=== PATIENT | female | born 1975 | race Caucasian/White ===

== ENCOUNTER 2018-02-14 15:32 | Emergency (ER) | payer MEDICARE, MEDICAID ==
[2018-02-14] MEDS ORDERED: Phenazopyridine TAB* 100 MG PO ONE (16:06)
[2018-02-14 16:21] LABS: Urine Appearance Turbid; Urine Blood 3+ (Negative); Urine Color Yellow; Urine Ketones Trace (Negative); Urine Protein 2+(100 mg/dL) (Negative); Urine Specific Gravity 1.026 (1.010-1.030); Urine Urobilinogen Negative (Negative)
[2018-02-14 20:24] VITALS: BP 108/64
--- NOTE | 2018-02-16 09:12 | ED ---
Progress - Progress Note Progress Note: Patient's preliminary urine culture reveals greater than 100,000 Escherichia coli. She was discharged on ciprofloxacin. Pending final results. No change at this time. Discharge - Sign-Out/Discharge Documenting (check all that apply): Post-Discharge Follow Up - Discharge Plan Condition: Stable Disposition: HOME Prescriptions: Ciprofloxacin TAB* [Cipro 500 MG TAB*] 500 mg PO BID #6 tab Phenazopyridine 200 mg (NF) [Pyridium 200 MG tab *] 200 mg PO TID PRN #6 tab PRN Reason: Pain Patient Education Materials: Urinary Tract Infection in Women (ED) Referrals: [facility] [Outside] No Primary Care Phys,NOPCP [Medical Doctor] - Additional Instructions: Drink plenty of water Don't hold urine -void when you have the urge Complete antibiotics Use pain medication (pyridium) for pain with urination Follow-up with PCP next week if symptoms persist *If worse, return to ED - Billing Disposition and Condition Condition: STABLE Disposition: HOME
== END 2018-02-14 16:44 | disposition home or self-care (01) ==
LOC: ED 15:32
DX: N39.0 Urinary tract infection, site not specified (principal)
CPT/HCPCS: 81003; 81015; 87077; 87086; 87186; 99282; A9270-GY

== ENCOUNTER 2019-10-29 22:07 | Emergency (ER) | payer MEDICARE, MEDICAID ==
--- NOTE | 2019-10-29 23:34 | ED ---
HPI Chest Pain - HPI Summary HPI Summary: This pt is a 43 Y/O F presenting to [facility] with a CC of a purulent productive cough and chest tightness that has been present since 10/26/19. She states that her tightness is rated a 6/10 in severity and states that she has been SOB since the onset too. She has a SHx of smoking cigarettes since she was 16 and states that she struggles with meth addiction and had her last use today. She also states that she has pain with deep breaths which aggravates her chest tightness. She states that a few hours ago she noticed that her heart rate increased. She states that she has been eating and drinking water. She denies any fevers, headaches, N/V/D, and sore throats. She has no alleviating factors. She has a PMHx of PNA, bronchitis, and COPD. - History of Current Complaint Chief Complaint: EDShortnessOfBreath Time Seen by Provider: 10/29/19 22:47 Hx Obtained From: Patient Hx Last Menstrual Period: unk, hysterectomy Onset/Duration: Started Days Ago - 3, Still Present Timing: Constant, Lasting Days - 3 Initial Severity: Moderate Current Severity: Moderate Pain Intensity: 6 Pain Scale Used: 0-10 Numeric Chest Pain Location: Diffuse Chest Pain Radiates: No Character: Cough, Productive - puruluent, Tightness Aggravating Factor(s): Deep Breaths Alleviating Factor(s): Nothing Associated Signs and Symptoms: Positive: Negative - diarrhea and sore throats, Chest Pain, Shortness of Breath, Palpitations - tachycardia, Productive Cough. Negative: Headaches, Fever, Nausea, Vomiting - Allergy/Home Medications Allergies/Adverse Reactions: Allergies Allergy/AdvReac Type Severity Reaction Status Date / Time No Known Allergies Allergy Verified 10/29/19 22:24 PMH/Surg Hx/FS Hx/Imm Hx Previously Healthy: Yes Endocrine/Hematology History: Denies: Hx Anticoagulant Therapy, Hx Diabetes, Hx Thyroid Disease Cardiovascular History: Denies: Hx Hypertension, Hx Pacemaker/ICD Respiratory History: Reports: Hx Chronic Obstructive Pulmonary Disease (COPD) Denies: Hx Asthma History: Denies: Hx Kidney Infection, Hx Kidney Stones, Hx Renal Disease Musculoskeletal History: Reports: Hx Back Problems Neurological History: 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 hysterectomy 2007. carpal Tunnel 2004 - Immunization History Date of Tetanus Vaccine: within 10y Immunizations Up to Date: Yes Infectious Disease History: No Infectious Disease History: Denies: Hx Hepatitis, Hx Human Immunodeficiency Virus (HIV), Traveled Outside the [place] in Last 30 Days - Family History Known Family History: Positive: Diabetes, Other - [place] - Social History Occupation: Unemployed Lives: With Family Alcohol Use: Rare Hx Substance Use: Yes Substance Use Type: Reports: Heroin Substance Use Comment - Amount & Last Used: 10/29/19 AM Hx Tobacco Use: Yes Smoking Status (MU): Current Every Day Smoker Type: Cigarettes Length of Time of Smoking/Using Tobacco: 27 years Have You Smoked in the Last Year: Yes Review of Systems - ROS Summary Review of Systems Summary: Home Medications Medication Instructions Recorded Confirmed Type DULoxetine DR CAP* [Cymbalta CAP*] 60 mg PO DAILY 12/05/12 12/05/12 History Motrin Ib 800 mg PO PRN 06/03/13 06/03/13 History Ciprofloxacin TAB* [Cipro 500 MG 500 mg PO BID #6 tab 02/14/18 Rx TAB*] Phenazopyridine 200 mg (NF) 200 mg PO TID PRN #6 tab 02/14/18 Rx [Pyridium 200 MG tab *] Negative: Fever Negative: Sore Throat Positive: Palpitations - tachycardia, Chest Pain Positive: Shortness Of Breath, Cough - purulent and productive Negative: Vomiting, Diarrhea, Nausea Negative: Headache All Other Systems Reviewed And Are Negative: Yes Physical Exam - Summary Physical Exam Summary: General: Well-developed, Thin female. No acute distress. HEENT: Normocephalic, Atraumatic. Eyes: Conjuctiva normal, PERRL. Oropharynx: Clear, mucous membranes moist, (-) exudates. Neck: Soft, FROM, (-) lymphadenopathy, (-) thyromegaly, (-) JVD. Cardiovascular: Normal sinus rhythm, (-) murmur. Lungs: Crackles in her L lower lung, no wheezing, good air exchange, (-) rhonchi. Abdomen: Soft, non-tender, non-distended, (-) organomegaly, normal bowel sounds. Back: (-) CVA tenderness Extremities: No edema. Skin: Warm, dry, (-) rash. Neuro: Alert and oriented x3, no focal deficits. Psychiatric: Mood normal, affect normal. Triage Information Reviewed: Yes Vital Signs On Initial Exam: Initial Vitals Temp Pulse Resp BP Pulse Ox 99.4 F 142 20 120/86 94 10/29/19 22:19 10/29/19 22:19 10/29/19 22:19 10/29/19 22:19 10/29/19 22:19 Vital Signs Reviewed: Yes Procedures - Sedation Patient Received Moderate/Deep Sedation with Procedure: No Diagnostics - Vital Signs Vital Signs Temp Pulse Resp BP Pulse Ox 10/29/19 23:05 136 31 93 10/29/19 22:44 137 30 93 10/29/19 22:19 99.4 F 142 20 120/86 94 - Laboratory Result Diagrams: 10/29/19 23:31 10/29/19 23:31 Lab Statement: Any lab studies that have been ordered have been reviewed, and results considered in the medical decision making process. - Radiology CXR Radiology Interpretation Completed By: ED Physician Summary of Radiographic Findings: No pleural effusion or acute infiltrate. Pending offical review. - CT Chest/Thorax CTA CT Interpretation Completed By: Radiologist Summary of CT Findings: 1. Multifocal endobronchial pneumonia. 2. No pulmonary emboli. ED physician has reviewed this report. - EKG 2226 Cardiac Rate: Tachycardia - 137 BPM EKG Rhythm: Sinus Tachycardia ST Segment: Normal Ectopy: None Summary of EKG Findings: EKG at 2226 reveals sinus tachycardia with rate of 137 BPM, no acute changes, no ischemic changes. This EKG was reviewed and interpreted by Dr. Santos at 222810/29/19. Chest Pain Course/Dx - Course Course Of Treatment: 43-year-old female presenting with cough. States she feels that she has bronchitis. After extensive workup patient is found to have multifocal pneumonia. IV drug use, last used today. Certainly advised patient to be admitted for IV antibiotics. Discussed at length with the patient. She refused to stay and signed out AGAINST MEDICAL ADVICE. Patient given piperacillin here. Discharged on antibiotics. Strongly recommend PCP follow- up. Patient may return any time for reevaluation and admission if needed. - Diagnoses Provider Diagnoses: Multifocal pneumonia, Left against medical advice Discharge ED - Sign-Out/Discharge Documenting (check all that apply): Patient Departure - AMA - Discharge Plan Condition: Stable Disposition: AGAINST MEDICAL ADVICE Prescriptions: Amoxicillin/Clavulanate TAB* [Augmentin TAB 875*] 875 mg PO BID #28 tab Patient Education Materials: Bacterial Pneumonia (ED) Referrals: Jojo Seymour MD [Primary Care Provider] - 2 Days Additional Instructions: PLEASE FOLLOW UP WITH YOUR PRIMARY CARE PHYSICIAN IN 1-3 DAYS AND RETURN TO THE EMERGENCY DEPARTMENT FOR ANY NEW OR WORSENING SYMPTOMS. You have left Against Medical Advice. Please be aware that the following complications may happen which include, but are not limited to: paralysis, coma , and . Please take the prescribed medications as directed. - Billing Disposition and Condition Condition: STABLE Disposition: Against Medical Advice - Attestation Statements Document Initiated by Juliano: Yes Documenting Scribe: Keith Thorpe Provider For Whom Juliano is Documenting (Include Credential): Ann Santos MD Scribe Attestation: Keith Cummings, scribed for Ann Santos MD on 11/02/19 at 2321. Scribe Documentation Reviewed: Yes Provider Attestation: The documentation as recorded by the Keith escobar accurately reflects the service I personally performed and the decisions made by me, Ann Santos MD Status of Scribe Document: Viewed
[2019-10-29 23:41] LABS: ABS Basophils 0.1 10^3/ul (0-0.2); ABS Neutrophils 10.2 10^3/ul (1.5-7.7); Hematocrit 37 % (35-47); Hemoglobin 13.3 g/dL (12.0-16.0); Lymphocyte % 8.1 %; Mean Corpuscular HGB Conc 35 g/dL (31-36); Mean Corpuscular Hemoglobin 32 pg (27-31); Mean Corpuscular Volume 91 fL (80-97); Mean Platelet Volume 7.7 fL (7.4-10.4); Platelet Count 215 10^3/uL (150-450); Red Blood Count 4.13 10^6 /uL (3.70-4.87); Red Cell Distribution Width 13 % (10-15); White Blood Count 12.3 10^3/uL (3.5-10.8)
[2019-10-29 23:57] LABS: ALT 11 U/L (7-52); AST 12 U/L (13-39); Albumin 3.9 g/dL (3.2-5.2); Albumin/Globulin Ratio 1.1 (1-3); Alkaline Phosphatase 70 U/L (34-104); Anion Gap 9 mmol/L (2-11); BUN/Creatinine Ratio 17.9 (8-20); Blood Urea Nitrogen 10 mg/dL (6-24); CO2 Carbon Dioxide 25 mmol/L (22-32); Calcium 8.6 mg/dL (8.6-10.3); Chloride 99 mmol/L (101-111); EGFR African American 144.4 (>60); EGFR Non-African American 119.3 (>60); Globulin 3.4 g/dL (2-4); Glucose 129 mg/dL (70-100); Sodium 133 mmol/L (135-145); Total Protein 7.3 g/dL (6.4-8.9)
[2019-10-30] LABS: Troponin I 0.01 ng/mL (<0.03)
[2019-10-30 00:04] LABS: HCG Pregnancy < 0.60 mIU/mL; INR 1.33 (0.82-1.09)
[2019-10-30] MEDS: NS 0.9% 1000 ML** 1,000 ML IV ONE (00:23)
[2019-10-30 00:34] LABS: Urine Appearance Cloudy; Urine Bilirubin Negative (Negative); Urine Blood Negative (Negative); Urine Color Yellow; Urine Glucose Negative (Negative); Urine Ketones Negative (Negative); Urine Nitrite Negative (Negative); Urine Protein Negative (Negative); Urine Specific Gravity 1.015 (1.010-1.030); Urine Urobilinogen Negative (Negative)
[2019-10-30] MEDS ORDERED: Iohexol 350* (CONTRAST) 500 ML MDV IV ONE (00:42)
[2019-10-30 00:50] LABS: Urine Benzodiazepine Screen None Detected (None Detect); Urine Opiates Screen Presumptive Positive (None Detect)
[2019-10-30] MEDS ORDERED: NS 0.9% 1000 ML** 1,000 ML IV ONE (00:57)
[2019-10-30] MEDS ORDERED: Piperacillin/Tazobac ADVAN(*) 3.375 GM in NS 0.9% 100 ML* 100 ML IVPB ONE (02:09)
[2019-10-30] MEDS ORDERED: Albuterol 2.5 MG/3 ML NEB.SOL* (0.083%) INH ONE (03:50)
[2019-10-30] MEDS ORDERED: Albuterol HFA INHALER* 8 gm MDI INH ONE (03:51)
[2019-10-30 05:03] VITALS: BP 129/73
== END 2019-10-30 04:30 | disposition left against medical advice (07) ==
LOC: ED 22:07
DX: J18.9 Pneumonia, unspecified organism (principal); Z53.29 Procedure and treatment not carried out because of patient's decision for other reasons; F17.210 Nicotine dependence, cigarettes, uncomplicated; J44.9 Chronic obstructive pulmonary disease, unspecified; Z98.51 Tubal ligation status; Z90.710 Acquired absence of both cervix and uterus; Z79.899 Other long term (current) drug therapy
CPT/HCPCS: 36415; 71046; 71275; 80053; 80307; 81003; 83605; 83880; 84484; 84702; 85025; 85379; 85610; 86140; 87040; 93005; 96361; 96365; 99283; A9270-GY; J2543; Q9967